=== PATIENT | male | born 1965 | race Caucasian/White ===

== ENCOUNTER → 2022-12-22 | Outpatient (CLI) | payer OTHER, SELFPAY ==
[2022-12-22 09:27] LABS: Cholesterol 108 mg/dL (200); Glucose 110 mg/dL (74-106); High Density Lipoprotein 59 mg/dL; Triglycerides 39 mg/dL; Very Low Density Lipoprotein 8 mg/dL (5-40)
== END | disposition home or self-care (01) ==
PROVIDERS: Referring Provider Emergency Medicine; Visit Provider Emergency Medicine
DX: Z13.220 Encounter for screening for lipoid disorders (principal); Z13.1 Encounter for screening for diabetes mellitus
CPT/HCPCS: 80061; 82947

== ENCOUNTER 2023-02-15 08:06 | Day surgery (SDC) | payer OTHER, SELFPAY ==
[2023-02-15 08:25] VITALS: BP 122/79; PULSE 62; RESP 16; TEMP 36.7; O2SAT 100; BMI 24.7
[2023-02-15] MEDS: Lactated Ringers 1,000 ML 15 ML IV (08:32)
--- NOTE | 2023-02-15 08:34 | HP.PCM_ITS ---
HPI - General HPI Narrative LELAND FLORES, is a 57 M who presents for screening colonoscopy. This is his first colonoscopy. He denies any abdominal pain or blood in the stool. No family history of colon cancer. [facility] Medical History (Updated 02/09/23 @ 12:02 by April Oneill) Wears glasses Home Medications NK 01/21/23 [History Last Taken Unknown] Allergy/AdvReac Type Severity Reaction Status Date / Time No Known Allergies Allergy Verified 02/15/23 08:24 Surgical History (Updated 02/09/23 @ 12:02 by April Oneill) History of umbilical hernia repair (~1998) Social History (Updated 01/21/23 @ 11:43 by Sherly Johnson) current occupational status: employed current occupation: ED Doctor Smoking Status: Never smoker Past Medical/Surgical History Planned Operation Planned Operative Procedure/s: CSCOPE Previous Hospitalizations/Surgeries HX Hospitalizations: No Any Problems With Anesthesia: No You/Your Family Experience Fever (Hyperthermia) With Anes: No Cholinesterase deficiency: No Cardiovascular Hx Hypertension: No Respiratory Hx Sleep Apnea: No Hx Respiratory Tract Infection/Cold (presently): No Do You Snore Loudly (louder than talking or can be heard): No Do You Often Feel Tired/ Fatigued/ Sleepy Dring Daytime?: No Has Anyone Observed You Stop Breathing During Sleep?: No Result (for STOP score): Negative Smoking Status: Never smoker Neurological Does patient have nerve stimulator: No Miscellaneous Recent Exposure to Contagious Disease: No Allergies No Known Allergies Allergy (Verified 02/15/23 08:24) Discharge Is Pt Admitted From a Halfway, or a Snf: No After D/C, Where Do you Plan to Go: Return Home Vital Signs Vital Signs Vital Signs: 02/15/23 08:25 02/15/23 08:25 Temperature 98.1 F Temperature Source Temporal Pulse Rate 62 Respiratory Rate 16 Respiratory Pattern Normal Blood Pressure 122/79 H Blood Pressure Mean 93 Blood Pressure Source Monitor Blood Pressure Position Semi-Fowlers Blood Pressure Location Left Arm Pulse Ox 100 Oxygen Delivery Method Room Air Weight Weight: 157 lb 13.616 oz Body Mass Index (BMI) 24.7 Physical Exam Const alert and oriented x3 HEENT normocephalic Eyes PERRL Resp normal respiratory effort and normal air movement Cardio regular rate and regular rhythm GI soft to palpation, non-tender and non-distended Extremity normal to inspection Assessment & Plan Assessment/Plan (1) Encounter for screening for malignant neoplasm of colon: PLAN: I explained endoscopy in detail to the patient. I explained the risks including but not limited to stroke or heart attack with anesthesia, perforation of the GI tract, bleeding, infection. I explained that any of these could necessitate further emergency surgery. The patient understands and all questions were answered sufficiently. The patient wishes to proceed with procedure. Chung Gomez MD Pager: [facility] [address] [place] [address] [address] [place] [address] Office: Surgery Risks - Colonoscopy Risks Include but are not Limited To: Risks include but are not limited to: Bleeding, perforation requiring further surgery, inability to complete colonoscopy requiring barium enema.
--- NOTE | 2023-02-15 09:00 | COLBX_PTH ---
PATIENT: LELAND FLORES LOC: EN U#:[id number] AGE/SX: 57/M ROOM: RE02/15/[address]: Dr. Chung Gomez MD : 1965 BED: DIS: 02/15/2023 SPEC #: [id number] RECD: 02/15/23 10:21 STATUS: ELZBIETA RAMANDEEP #: [id number] RALPH: 02/15/23 09:[address]: Chung Gomez DEPT: SURGICAL PATHOLOGY RECD BY: Margy García ENTERED: 02/15/23 11:12 SP TYPE: COLON BX OTHR DR: No Primary Care Phys Tissues: A - Descending colon B - Rectum, NOS Procedures: Surgery Specimen Level IV HEADER OPERATION: Colonoscopy ? open access (MAC) with polypectomy PRE-OP DIAGNOSIS: Screening TISSUE SUBMITTED: A ? Descending colon polyp, B ? Rectal polyp MICROSCOPIC DIAGNOSIS A. Descending colon polyp, biopsy: Tubular adenoma. B. Rectal polyp, biopsy: Tubular adenoma. AM:elbert 02/16/2023 MICROSCOPIC DESCRIPTION Slides are reviewed. GROSS DESCRIPTION A - Received in fixative is one container labeled with the patient's name and designated descending colon polyp. The specimen consists of a thomas-pink polyp measuring 1.5 x 0.5 x 0.5 cm. The presumed base is inked. The polyp is bisected and submitted entirely in one cassette. B - Received in fixative is one container labeled with the patient's name and designated rectal polyp. The specimen consists of thomas-pink polyp measuring 0.7 x 0.7 x 0.6 cm. The presumed base is inked. The polyp is bisected and submitted entirely in one cassette. / SJ:elbert 02/15/2023 TC:5 CPT: 47233 x2
[2023-02-15 09:20] VITALS: BP 112/78; BP 122/79; PULSE 66; RESP 16; TEMP 36.2; O2SAT 95
--- NOTE | 2023-02-15 09:22 | OP.COLON_ITS ---
Patient Name: Clyde Alejo Procedure Date: 02/15/2023 8:40 AM Date of : 1965 Age: 57 Procedure: Colonoscopy Indications: Screening for colorectal malignant neoplasm Providers: Chung Gomez MD Medicines: Monitored Anesthesia Care Patient Profile: This is a 57 year old male. Refer to note in patient chart for documentation of history and physical. Last Colonoscopy: none. The patient's first colonoscopy is today. Complications: No immediate complications. Procedure: Pre-Anesthesia Assessment: - Prior to the procedure, a History and Physical was performed, and patient medications and allergies were reviewed. The patient's tolerance of previous anesthesia was also reviewed. The risks and benefits of the procedure and the sedation options and risks were discussed with the patient. All questions were answered, and informed consent was obtained. Prior Anticoagulants: The patient has taken no previous anticoagulant or antiplatelet agents. After reviewing the risks and benefits, the patient was deemed in satisfactory condition to undergo the procedure. After I obtained informed consent, the scope was passed under direct vision. Throughout the procedure, the patient's blood pressure, pulse, and oxygen saturations were monitored continuously. The Colonoscope was introduced through the anus and advanced to the cecum, identified by appendiceal orifice and ileocecal valve. The colonoscopy was performed without difficulty. The patient tolerated the procedure well. The quality of the bowel preparation was good. Scope In: 8:55:53 AM Scope Withdrawal Time 0 hours 15 minutes 10 seconds Scope Out: 9:16:11 AM Total Procedure Duration Time 0 hours 20 minutes 18 seconds Findings: Two sessile polyps were found in the rectum and descending colon. These polyps were removed with a hot snare. Resection and retrieval were complete. The exam was otherwise without abnormality on direct and retroflexion views. Impression: - Two polyps in the rectum and in the descending colon, removed with a hot snare. Resected and retrieved. - The examination was otherwise normal on direct and retroflexion views. Recommendation: - Discharge patient to home. - Resume previous diet. - Continue present medications. - Await pathology results. - Repeat colonoscopy in 5 years for surveillance based on pathology results. Procedure Code(s): --- Professional --- 17151, 33, Colonoscopy, flexible; with removal of tumor(s), polyp(s), or other lesion(s) by snare technique Diagnosis Code(s): --- Professional --- Z12.11, Encounter for screening for malignant neoplasm of colon K62.1, Rectal polyp D12.4, Benign neoplasm of descending colon CPT copyright 2017 [employer]. All rights reserved. The codes documented in this report are preliminary and upon carrot buncher review may be revised to meet current compliance requirements. Chung Gomez MD 02/15/2023 9:22:32 AM This report has been signed electronically. Number of Addenda: 0 Note Initiated On: 02/15/2023 8:40 AM
--- NOTE | 2023-02-15 09:22 | OP.CCLET_ITS ---
02/15/2023 No Primary Care Physician Re : Colonoscopy procedure for Clyde Alejo Dear Care Physician This procedure was performed on Wednesday, February 15, 2023. My impressions and recommendations are as follows: Impressions : - Two polyps in the rectum and in the descending colon, removed with a hot snare. Resected and retrieved. - The examination was otherwise normal on direct and retroflexion views. Recommendations : - Discharge patient to home. - Resume previous diet. - Continue present medications. - Await pathology results. - Repeat colonoscopy in 5 years for surveillance based on pathology results. My findings are described in the full procedure note, which is enclosed. If I can be of further assistance, please feel free to contact me at Doctor phone number(s): , Work: . Sincerely, Chung Gomez MD 02/15/2023 9:22:32 AM This report has been signed electronically.
[2023-02-15 09:25] VITALS: BP 113/79; BP 122/79; PULSE 65; RESP 16; O2SAT 96
[2023-02-15 09:30] VITALS: BP 122/79; BP 122/89; PULSE 65; RESP 16; O2SAT 97
[2023-02-15 09:35] VITALS: BP 112/84; BP 122/79; PULSE 71; RESP 16; TEMP 36.6; O2SAT 100
[2023-02-15 09:59] VITALS: BP 122/79
== END 2023-02-15 10:02 | disposition home or self-care (01) ==
LOC: EN 08:09 → AC 08:10
PROVIDERS: Visit Provider Surgery
PROC: 0DJD8ZZ Inspection of Lower Intestinal Tract, Via Natural or Artificial Opening Endoscopic (ICD-10-PCS; CPT 45378; principal; 2023-02-15 08:55)
DX: Z12.11 Encounter for screening for malignant neoplasm of colon (principal); D12.4 Benign neoplasm of descending colon; D12.7 Benign neoplasm of rectosigmoid junction
CPT/HCPCS: 45385; 88305; J7120; J2405